=== PATIENT | female | born 1970 | race Caucasian/White ===

== ENCOUNTER 2018-06-18 21:01 | Outpatient (REF) | payer MEDICAID, SELFPAY ==
[2018-06-18 21:32] LABS: Abs Immature Grans 0.01 k/cumm (0.0-0.09); Absolute Basophil Count 0.04 k/cumm (0.0-0.2); Absolute Eosinophil Count 0.19 k/cumm (0.0-0.7); Absolute Lymphocyte Count 3.51 k/cumm (1.2-3.4); Absolute Monocyte Count 0.77 k/cumm (0.11-0.7); Absolute Neutrophil Count 4.11 k/cumm (1.2-6.7); Basophils % 0.5; Eosinophils % 2.2; HCT 39.3 % (36.0-46.0); HGB 13.3 g/dL (12.0-15.5); Immature Grans % 0.1; Lymphocytes % 40.7; Mean Corp. HGB Concentration 33.8 g/dL (32.0-36.0); Mean Corpuscular Hemoglobin 29.6 pg (27.0-33.0); Mean Corpuscular Volume 87.3 fL (80-95); Mean Platelet Volume 10.7 fL (8.0-11.0); Monocytes % 8.9; Neutrophils % 47.6; Platelet Count 247 x1000/uL (130-400); RBC Distribution Width 13.1 % (11.7-14.6); White Blood Cell Count 8.63 k/cumm (4.4-10.8)
[2018-06-18 21:49] LABS: ALT 41 U/L (12-78); AST 31 U/L (15-37); Albumin 3.8 g/dL (3.4-5.0); Alkaline Phosphatase 59 U/L (46-116); Anion Gap 10.9 mmol/L (3-11); BUN 9 mg/dL (7-18); Bilirubin, Total 0.3 mg/dL (0.2-1.0); C-Reactive Protein 0.35 mg/dL (0.0-0.3); CO2 27.1 mmol/L (21.0-32.0); CREATININE 0.65 mg/dL (0.55-1.02); Chloride 103 mmol/L (98-107); Glucose 85 mg/dL (70-100); Sodium 141 mmol/L (136-145); Total Protein 7.6 g/dL (6.4-8.2)
== END 2018-06-18 21:21 ==
LOC: NCHCN 21:01
PROVIDERS: PCP Family Medicine; Visit Provider Family Medicine
DX: R59.9 Enlarged lymph nodes, unspecified (principal); R50.9 Fever, unspecified; R05 Cough
CPT/HCPCS: 80053; 85025; 86140

== ENCOUNTER 2018-07-06 16:06 | Outpatient (REF) | payer MEDICAID, SELFPAY ==
[2018-07-06 21:34] LABS: Abs Immature Grans 0.03 k/cumm (0.0-0.09); Absolute Basophil Count 0.02 k/cumm (0.0-0.2); Absolute Eosinophil Count 0.23 k/cumm (0.0-0.7); Absolute Lymphocyte Count 2.94 k/cumm (1.2-3.4); Absolute Monocyte Count 0.79 k/cumm (0.11-0.7); Absolute Neutrophil Count 6.71 k/cumm (1.2-6.7); Basophils % 0.2; Eosinophils % 2.1; HCT 42.1 % (36.0-46.0); HGB 14.1 g/dL (12.0-15.5); Immature Grans % 0.3; Lymphocytes % 27.4; Mean Corp. HGB Concentration 33.5 g/dL (32.0-36.0); Mean Corpuscular Hemoglobin 29.4 pg (27.0-33.0); Mean Corpuscular Volume 87.9 fL (80-95); Mean Platelet Volume 11.2 fL (8.0-11.0); Monocytes % 7.4; Neutrophils % 62.6; Platelet Count 223 x1000/uL (130-400); RBC 4.79 m/cumm (4.00-5.20); RBC Distribution Width 13.5 % (11.7-14.6); White Blood Cell Count 10.72 k/cumm (4.4-10.8)
[2018-07-06 22:09] LABS: ALT 65 U/L (12-78); AST 39 U/L (15-37); Albumin 4.3 g/dL (3.4-5.0); Alkaline Phosphatase 67 U/L (46-116); Anion Gap 9.6 mmol/L (3-11); BUN 7 mg/dL (7-18); Bilirubin, Total 0.4 mg/dL (0.2-1.0); C-Reactive Protein 0.45 mg/dL (0.0-0.3); CO2 26.4 mmol/L (21.0-32.0); CREATININE 0.67 mg/dL (0.55-1.02); Calcium 9.1 mg/dL (8.5-10.1); Chloride 102 mmol/L (98-107); ESR 26 MM/HR (0-20); Glucose 83 mg/dL (70-100); Potassium 4.3 mmol/L (3.5-5.1); Sodium 138 mmol/L (136-145); Total Protein 8.4 g/dL (6.4-8.2)
== END 2018-07-06 16:26 ==
LOC: NCHCN 16:06
PROVIDERS: PCP Family Medicine; Visit Provider Family Medicine
DX: R59.9 Enlarged lymph nodes, unspecified (principal)
CPT/HCPCS: 80053; 85652; 85025; 86140

== ENCOUNTER 2018-08-24 14:41 | Outpatient (REF) | payer MEDICAID, SELFPAY ==
[2018-08-24 17:03] LABS: FREE T4 0.88 ng/dL (0.76-1.46); TSH 1.06 uIU/mL (0.358-3.74)
[2018-08-26 09:10] LABS: Thyroglobulin Antibody 21 U/mL (<61); Thyroperoxidase Antibody <28 U/mL (<61)
== END 2018-08-24 15:01 ==
LOC: NCHCN 14:41
PROVIDERS: PCP Family Medicine; Visit Provider Family Medicine
DX: E01.0 Iodine-deficiency related diffuse (endemic) goiter (principal)
CPT/HCPCS: 84439; 84443; 86376; 86800

== ENCOUNTER 2018-12-02 15:44 | Outpatient (REF) | payer MEDICAID, SELFPAY ==
[2018-12-02 22:10] LABS: FREE T4 0.91 ng/dL (0.76-1.46); TSH 0.26 uIU/mL (0.358-3.74)
[2018-12-02 22:20] LABS: COMMENT (LAB VIEW ONLY) 136.15 mg/dL; Microalb ug/mg Crea 12.4 ug/mg Cr
== END 2018-12-02 16:04 ==
LOC: NCHCN 15:44
PROVIDERS: PCP Family Medicine; Visit Provider Registered Nurse
DX: E04.2 Nontoxic multinodular goiter (principal); E11.9 Type 2 diabetes mellitus without complications
CPT/HCPCS: 82043; 82570; 84439; 84443

== ENCOUNTER 2019-05-31 15:16 | Outpatient (REF) | payer MEDICAID, SELFPAY ==
[2019-05-31 21:58] LABS: Abs Immature Grans 0.01 k/cumm (0.0-0.09); Absolute Basophil Count 0.05 k/cumm (0.0-0.2); Absolute Eosinophil Count 0.17 k/cumm (0.0-0.7); Absolute Lymphocyte Count 3.02 k/cumm (1.2-3.4); Absolute Monocyte Count 0.69 k/cumm (0.11-0.7); Absolute Neutrophil Count 2.85 k/cumm (1.2-6.7); Basophils % 0.7; Eosinophils % 2.5; HCT 40.7 % (36.0-46.0); HGB 13.2 g/dL (12.0-15.5); Immature Grans % 0.1; Lymphocytes % 44.5; Mean Corp. HGB Concentration 32.4 g/dL (32.0-36.0); Mean Corpuscular Hemoglobin 27.6 pg (27.0-33.0); Mean Platelet Volume 10.6 fL (8.0-11.0); Monocytes % 10.2; Platelet Count 244 x1000/uL (130-400); RBC 4.79 m/cumm (4.00-5.20); RBC Distribution Width 14.6 % (11.7-14.6); White Blood Cell Count 6.79 k/cumm (4.4-10.8)
[2019-05-31 22:09] LABS: ALT 20 U/L (14-59); AST 16 U/L (15-37); Alkaline Phosphatase 52 U/L (46-116); Anion Gap 8.9 mmol/L (3-11); BUN 9 mg/dL (7-18); Bilirubin, Total 0.2 mg/dL (0.2-1.0); CO2 27.1 mmol/L (21.0-32.0); CREATININE 0.76 mg/dL (0.55-1.02); Chloride 105 mmol/L (98-107); Glucose 96 mg/dL (70-100); Potassium 4.2 mmol/L (3.5-5.1); Sodium 141 mmol/L (136-145)
== END 2019-05-31 15:36 ==
LOC: NCHCN 15:16
PROVIDERS: PCP Family Medicine; Visit Provider Registered Nurse
DX: L40.9 Psoriasis, unspecified (principal); Z79.899 Other long term (current) drug therapy; D84.8 Other specified immunodeficiencies
CPT/HCPCS: 80053; 85025

== ENCOUNTER 2020-01-19 20:38 | Outpatient (REF) | payer MEDICAID, SELFPAY ==
[2020-01-19 20:32] LABS: Abs Immature Grans 0.01 k/cumm (0.0-0.09); Absolute Basophil Count 0.01 k/cumm (0.0-0.2); Absolute Eosinophil Count 0.17 k/cumm (0.0-0.7); Absolute Lymphocyte Count 2.86 k/cumm (1.2-3.4); Absolute Monocyte Count 0.86 k/cumm (0.11-0.7); Absolute Neutrophil Count 3.48 k/cumm (1.2-6.7); Basophils % 0.1; Eosinophils % 2.3; HCT 35.3 % (36.0-46.0); HGB 11.2 g/dL (12.0-15.5); Immature Grans % 0.1 %; Lymphocytes % 38.7; Mean Corp. HGB Concentration 31.7 g/dL (32.0-36.0); Mean Corpuscular Hemoglobin 26.2 pg (27.0-33.0); Mean Corpuscular Volume 82.5 fL (80-95); Mean Platelet Volume 10.6 fL (8.0-11.0); Monocytes % 11.6; Neutrophils % 47.2; Platelet Count 304 x1000/uL (130-400); RBC 4.28 m/cumm (4.00-5.20); RBC Distribution Width 16.5 % (11.7-14.6); White Blood Cell Count 7.39 k/cumm (4.4-10.8)
== END 2020-01-19 20:58 ==
LOC: NCHCN 20:38
PROVIDERS: PCP Family Medicine; Visit Provider Registered Nurse
DX: R10.9 Unspecified abdominal pain (principal)
CPT/HCPCS: 85025

== ENCOUNTER 2020-04-21 13:25 | Outpatient (REF) | payer MEDICAID, SELFPAY ==
[2020-04-21 22:59] LABS: Anion Gap 7.7 mmol/L (3-11); BUN 9 mg/dL (7-18); CO2 28.3 mmol/L (21.0-32.0); CREATININE 0.65 mg/dL (0.55-1.02); Calcium 9.1 mg/dL (8.5-10.1); Calculated LDL 112 mg/dL (<100); Chloride 100 mmol/L (98-107); Cholesterol 178 mg/dL (<200); Glucose 140 mg/dL (74-106); HDL Cholesterol 31 mg/dL (40-60); Potassium 4.2 mmol/L (3.5-5.1); Sodium 136 mmol/L (136-145); Triglyceride 178 mg/dL (<150)
[2020-04-21 23:18] LABS: COMMENT (LAB VIEW ONLY) 189.17 mg/dL; Microalb ug/mg Crea 6.8 ug/mg Cr
[2020-04-22 00:44] LABS: FREE T4 0.98 ng/dL (0.76-1.46)
== END 2020-04-21 13:45 ==
LOC: NCHCN 13:25
PROVIDERS: PCP Family Medicine; Visit Provider Registered Nurse
DX: E11.9 Type 2 diabetes mellitus without complications (principal)
CPT/HCPCS: 80048; 80061; 82043; 82570; 84439; 84443

== ENCOUNTER 2021-05-23 12:32 | Outpatient (REF) | payer MEDICAID, SELFPAY ==
[2021-05-23 22:32] LABS: TSH (W/Ref FT4) 0.67 uIU/mL (0.36-3.74)
== END 2021-05-23 12:33 | disposition home or self-care (01) ==
LOC: NCHCN 12:32
PROVIDERS: PCP Family Medicine; Visit Provider Registered Nurse
DX: E03.9 Hypothyroidism, unspecified (principal)
CPT/HCPCS: 84443

== ENCOUNTER 2021-08-22 15:45 | Outpatient (REF) | payer MEDICAID, SELFPAY ==
[2021-08-22 21:45] LABS: HCT 42.5 % (36.0-46.0); MCH 26.2 pg (27.0-33.0); MCHC 30.6 % (32.0-36.0); MCV 85.7 fL (80-95); MPV 10.5 fL (8.0-11.0); Platelet Count 276 10^3/uL (130-400); RBC 4.96 10^6/uL (3.93-5.22); RDW 15.4 % (11.7-14.6); RDW-SD 48.3 fL; WBC 7.44 10^3/uL (4.4-10.8)
[2021-08-22 21:57] LABS: ALT 41 U/L (14-59); AST 18 U/L (15-37); Alkaline Phosphatase 74 U/L (46-116); Anion Gap 8.5 mmol/L (3-11); BUN 17 mg/dL (7-18); Bilirubin, Total 0.2 mg/dL (0.2-1.0); CO2 28.5 mmol/L (21.0-32.0); CREATININE 0.7 mg/dL (0.55-1.02); Calcium 9.4 mg/dL (8.5-10.1); Calculated LDL 141 mg/dL (<100); Chloride 103 mmol/L (98-107); Cholesterol 209 mg/dL (<200); Glucose 140 mg/dL (74-106); HDL Cholesterol 39 mg/dL (40-60); Potassium 4.1 mmol/L (3.5-5.1); Sodium 140 mmol/L (136-145); Triglyceride 148 mg/dL (<150)
== END 2021-08-22 15:46 | disposition home or self-care (01) ==
LOC: NCHCN 15:45
PROVIDERS: PCP Family Medicine; Visit Provider Registered Nurse
DX: I10 Essential (primary) hypertension (principal); K76.0 Fatty (change of) liver, not elsewhere classified; Z79.899 Other long term (current) drug therapy
CPT/HCPCS: 80053; 80061; 85027

== ENCOUNTER 2021-09-14 16:58 | Outpatient (REF) | payer MEDICAID, SELFPAY | END 2021-09-14 16:59 | disposition home or self-care (01) | LOC: NCHCN 16:58 | PROVIDERS: PCP Family Medicine; Visit Provider Registered Nurse | DX: R30.0 Dysuria (principal) | CPT/HCPCS: 87086 ==

== ENCOUNTER 2021-12-20 20:44 | Outpatient (REF) | payer MEDICAID, SELFPAY ==
[2021-12-20 21:08] LABS: COMMENT (LAB VIEW ONLY) 22.99 mg/dL; Microalb ug/mg Crea 17.8 ug/mg Cr
== END 2021-12-20 20:45 | disposition home or self-care (01) ==
LOC: NCHCN 20:44
PROVIDERS: PCP Family Medicine; Visit Provider Registered Nurse
DX: E11.9 Type 2 diabetes mellitus without complications (principal)
CPT/HCPCS: 82043; 82570

== ENCOUNTER 2022-06-19 15:11 | Outpatient (REF) | payer MEDICAID, SELFPAY ==
--- NOTE | 2022-06-19 13:20 | PAPFT_PTH ---
PATIENT: Barb Espino LOC: [facility]#:[id number] AGE/SX: 51/F ROOM: RE06/19/[address]: Gail Mann : 1970 BED: DIS: 06/19/2022 SPEC #: [id number] RECD: 06/20/22 13:06 STATUS: MARCOS REFrancisco #: [id number] SANDRA: 06/19/22 13:[address]: Gail Mann DEPT: [facility] Cytology RECD BY: Diamond Davison ENTERED: 06/20/22 13:06 SP TYPE: PAPFT OTHR DR: Jimbo Gutierrez Tissues: 1 - CX/ENDOCX FOR PAP SMEARS Procedures: PAP THIN PREP/[facility] Screening HPV DNA PROBE Comments: [id number]
[2022-06-19 21:08] LABS: HCT 40.8 % (36.0-46.0); HGB 13.1 g/dL (11.2-15.7); MCH 28.6 pg (27.0-33.0); MCHC 32.1 % (32.0-36.0); MCV 89 fL (80-95); MPV 10.1 fL (8.0-11.0); Platelet Count 255 10^3/uL (130-400); RBC 4.58 10^6/uL (3.93-5.22); RDW 14.4 % (11.7-14.6); RDW-SD 46.4 fL; WBC 7.91 10^3/uL (4.4-10.8)
[2022-06-19 21:27] LABS: ALT 48 U/L (14-59); AST 28 U/L (15-37); Albumin 3.9 g/dL (3.4-5.0); Alkaline Phosphatase 97 U/L (46-116); BUN 12 mg/dL (7-18); Bilirubin, Total 0.3 mg/dL (0.2-1.0); CREATININE 0.7 mg/dL (0.55-1.02); Calcium 9.7 mg/dL (8.5-10.1); Calculated LDL 141 mg/dL (<100); Chloride 104 mmol/L (98-107); Cholesterol 218 mg/dL (<200); Glucose 89 mg/dL (74-106); HDL Cholesterol 41 mg/dL (40-60); Potassium 4.2 mmol/L (3.5-5.1); Sodium 140 mmol/L (136-145); TSH 1.08 uIU/mL (0.36-3.74); Total Protein 8.4 g/dL (6.4-8.2); Triglyceride 183 mg/dL (<150)
[2022-06-19 21:36] LABS: Hemoglobin A1C 7.4 % (<5.7)
== END 2022-06-19 15:12 | disposition home or self-care (01) ==
LOC: NCHCN 15:11
PROVIDERS: PCP Family Medicine; Visit Provider Registered Nurse
DX: R61 Generalized hyperhidrosis (principal); Z86.79 Personal history of other diseases of the circulatory system; Z12.4 Encounter for screening for malignant neoplasm of cervix; Z11.51 Encounter for screening for human papillomavirus (HPV)
CPT/HCPCS: 80053; 80061; 85027; 88142; 83036; 84443; 87624

== ENCOUNTER 2023-09-23 12:40 | Outpatient (REF) | payer MEDICAID, SELFPAY ==
[2023-09-23 15:29] LABS: COMMENT (LAB VIEW ONLY) 52.42 mg/dL; Microalb ug/mg Crea 17.9 ug/mg Cr
== END 2023-09-23 12:41 | disposition home or self-care (01) ==
LOC: NCHCN 12:40
PROVIDERS: PCP Family Medicine; Visit Provider Family Medicine
DX: E11.65 Type 2 diabetes mellitus with hyperglycemia (principal)
CPT/HCPCS: 82043; 82570

== ENCOUNTER 2024-08-10 15:43 | Outpatient (REF) | payer MEDICAID, SELFPAY ==
[2024-08-10 21:37] LABS: Abs Immature Grans 0.01 10^3/uL (0.0-0.06); Absolute Basophil Count 0.04 10^3/uL (0.0-0.2); Absolute Lymphocyte Count 2.96 10^3/uL (1.2-3.4); Absolute Monocyte Count 0.61 10^3/uL (0.1-0.8); Absolute Neutrophil Count 3.37 10^3/uL (1.2-6.7); Basophils % 0.6 %; Eosinophils % 2.8 %; HCT 46.5 % (36.0-46.0); Immature Grans % 0.1 %; Lymphocytes % 41.2 %; MCH 28.1 pg (27.0-33.0); MCHC 32.3 % (32.0-36.0); MCV 87 fL (80-95); MPV 10.2 fL (8.0-11.0); Monocytes % 8.5 %; Neutrophils % 46.8 %; Platelet Count 210 10^3/uL (130-400); RBC 5.33 10^6/uL (3.93-5.22); RDW 13.2 % (11.7-14.6); RDW-SD 42.5 fL; WBC 7.19 10^3/uL (4.4-10.8)
[2024-08-10 21:55] LABS: ALT 21 U/L (14-59); AST 24 U/L (15-37); Albumin 3.9 g/dL (3.4-5.0); Alkaline Phosphatase 98 U/L (46-116); Amylase 26 U/L (25-115); Anion Gap 8.8 mmol/L (3-11); BUN 9 mg/dL (7-18); Bilirubin, Total 0.29 mg/dL (0.2-1.0); CO2 28.2 mmol/L (21.0-32.0); CREATININE 0.8 mg/dL (0.55-1.02); Chloride 105 mmol/L (98-107); Glucose 155 mg/dL (74-106); Lipase 18 U/L (<78); Potassium 3.9 mmol/L (3.5-5.1); Sodium 142 mmol/L (136-145); Total Protein 8.5 g/dL (6.4-8.2)
[2024-08-10 22:01] LABS: Calcium 9.3 mg/dL (8.5-10.1)
[2024-08-10 22:05] LABS: Hemoglobin A1C 6.9 % (<5.7)
[2024-08-10 22:25] LABS: Calculated LDL 103 mg/dL (<100); Cholesterol 176 mg/dL (<200); HDL Cholesterol 55 mg/dL (40-60); Triglyceride 93 mg/dL (<150)
== END 2024-08-10 15:44 | disposition home or self-care (01) ==
LOC: NCHCN 15:43
PROVIDERS: PCP Family Medicine; Visit Provider Family Medicine
DX: E11.9 Type 2 diabetes mellitus without complications (principal); Z87.19 Personal history of other diseases of the digestive system
CPT/HCPCS: 80053; 80061; 83690; 82150; 83036; 85025

== ENCOUNTER 2024-10-13 13:15 | Outpatient (REF) | payer MEDICAID, SELFPAY ==
[2024-10-13 22:00] LABS: COMMENT (LAB VIEW ONLY) 43.08 mg/dL; Microalb ug/mg Crea 10.4 ug/mg Cr
== END 2024-10-13 13:16 | disposition home or self-care (01) ==
LOC: NCHCN 13:15
PROVIDERS: PCP Family Medicine; Visit Provider Family Medicine
DX: E11.9 Type 2 diabetes mellitus without complications (principal)
CPT/HCPCS: 82043; 82570